=== PATIENT | female | born 1960 | race African-American/Black ===

== ENCOUNTER 2017-06-29 06:18 | Day surgery (SDC) | payer BC ==
[2017-06-27 11:03] VITALS: BMI 34.9
[2017-06-29] MEDS ORDERED: PROPOFOL 20 ML ONE (07:15)
[2017-06-29] MEDS ORDERED: MIDAZOLAM HCL 2 MG/2 ML SINGLE DOSE VIAL ONE (07:15)
[2017-06-29] MEDS ORDERED: ROCURONIUM BROMIDE 50 MG/5 ML VIAL ONE (07:15)
[2017-06-29] MEDS ORDERED: ePHEDrine SULFATE 50 MG/1 ML AMPULE ONE ×2 (07:15→07:16)
[2017-06-29] MEDS ORDERED: BUPIVACAINE HCL/PF 0.5% (5MG/ML) 10 ML VIAL ONE (07:17)
--- NOTE | 2017-06-29 08:10 | HP ---
Satellite [facility] - Chief Complaint Chief Complaint: lefft knee pain History Source: Patient - Past Medical History Allergies/Adverse Reactions: Allergies Allergy/AdvReac Type Severity Reaction Status Date / Time No Known Drug Allergies Allergy Verified 06/29/17 06:46 - Current Medications Current Medications: Home Medications Medication Instructions Recorded Ibuprofen [Advil -] 200 mg PO PRN PRN 06/29/17 Satellite Physical Exam - Physical Examination Vital Signs: Vital Signs Period Temp Pulse Resp BP Sys/Cruz Pulse Ox Last 24 Hr 97.9 F 82 20 139/86 97 Extremities: Other (+ joint line tenderness) Satellite Impression/Plan - Impression/Plan Impression: internal derangement left knee Operative Procedure: arthrosocpy left knee Date to be Performed: 06/29/17
[2017-06-29] MEDS ORDERED: ceFAZolin SODIUM 1 GM VIAL IVPB ONE (08:28)
[2017-06-29] MEDS ORDERED: KETOROLAC TROMETHAMINE 30 MG/1 ML VIAL ONE (08:49)
[2017-06-29] MEDS ORDERED: ceFAZolin SODIUM 1 GM VIAL ONE (08:50)
[2017-06-29] MEDS ORDERED: BUPIVACAINE HCL/PF 0.5% (5MG/ML) 10 ML VIAL IJ ONE (09:04)
--- NOTE | 2017-06-29 09:23 | OP ---
Operative Note - Note: Operative Date: 06/29/17 Pre-Operative Diagnosis: left knee pain, medial meniscus tear, OA Findings: synovitis, OA, meniscus tear Surgeon: Vernon Vernon Museum Registrar: Guilherme Nolen Anesthesiologist/QUALITY ASSURANCE CLERK: Romero Langley Specimens Removed: shavings Estimated Blood Loss (mls): 25 Drains, Volume Out (mls): 0 Blood Volume Replaced (mls): 0 Fluid Volume Replaced (mls): 0 Operative Report Dictated: Yes
[2017-06-29] MEDS ORDERED: oxyCODONE HCL 5 MG TABLET PO PRN ×2 (10:34)
[2017-06-29] MEDS ORDERED: ONDANSETRON 4 MG/2 ML VIAL IVPUSH PRN (10:34)
--- NOTE | 2017-06-29 10:43 | OP ---
DATE OF OPERATION: DATE OF DICTATION: 06/29/2017 PREOPERATIVE DIAGNOSES: Left knee pain, medial meniscus tear, osteoarthritis. POSTOPERATIVE DIAGNOSES: Left knee pain, medial meniscus tear, osteoarthritis, plus synovitis. PROCEDURE: Left knee arthroscopy, partial medial meniscectomy, debridement chondroplasty and arthroscopic synovectomy. SURGEON: Vernon Vernon MD FLANGER: Guilherme Nolen MD ANESTHESIOLOGIST: Romero Og MD STILL CLEANER: Rigoberto Doherty CRNA ANESTHESIA: LMA and an intraarticular injection of 20 mL of 0.5% Marcaine. DRAINS: None. COMPLICATIONS: None. SPECIMEN: Arthroscopic shavings. BLOOD LOSS: 25 mL. FLUID REPLACEMENT: Plasma-Lyte, 500 mL. This patient is a 56-year-old female with the preoperative diagnosis of left knee pain, medial meniscus tear, osteoarthritis. After understanding the potential risks, complications, alternatives and benefits of surgical versus nonsurgical treatment, the patient elected to undergo this procedure. The patient was brought to the operating room, peripheral IV placed and IV sedation given. Two grams of IV Ancef was given. The LMA anesthesia was induced. The patient was placed into the C-clamp leg reyna with ample padding throughout. The left lower extremity was prepped and draped in sterile fashion, elevated, exsanguinated with an Esmarch bandage, tourniquet inflated to 250 mmHg. A superolateral portal was established. A lateral portal was established under direct visualization. Medial portal was established. A diagnostic arthroscopy was performed. The patient's blood pressure was a little bit and there was some bleeding through the tourniquet. Therefore, first we tried to put the tourniquet up to 300 mmHg and then we took it down entirely. Total tourniquet time was 7 minutes. The rest of the case was done without the tourniquet. Patient was seen to have a degenerative-type tear of the medial meniscus. This was debrided with a curved shaver. Patient had some osteoarthritis in areas, grade 3 of the medial femoral condyle and the lateral femoral condyle. These were both debrided with the curved shaver. The lateral tibial plateau and medial tibial plateau had grade 2 changes. There was a lot of synovitis within the knee. This was debrided. After the partial synovectomy of the intracondylar notch, the ACL was seen to be intact, directly visualized and probed. It was good. Next our attention turned to the patellofemoral joint. The patient had some chondromalacia of the patella, "crabmeat" effect on the undersurface of the patella. This was debrided with the shaver. The patient had a lot of synovitis in the patellofemoral joint. As well this was debrided. After the partial synovectomy of the patellofemoral joint we could see the undersurface of the patella which definitely had widespread osteoarthritis and the femoral trochlea which actually looked good. The area was copiously irrigated and washed out. All instrumentation and excess saline were removed. The arthroscopy portals were closed with 3-0 nylon sutures. The area was then washed and dried, covered with Xeroform gauze, 4 x 4 gauze, ABD and Kevin bandage. Total operative time was about 25 minutes. There were no complications during the case. The patient tolerated the procedure quite well and was brought to the ambulatory recovery room in stable condition. Jaimee [id number]
[2017-06-29] MEDS ORDERED: LACTATED RINGERS SOLUTION 1,000 ML IV SCH (10:45)
[2017-06-29 11:06] VITALS: TEMP 97.9
[2017-06-29 12:22] VITALS: BP 138/79; PULSE 92
--- NOTE | 2017-07-01 15:34 | PATH ---
Surgical Pathology Report Patient Name: NICOLAS HERNANDEZ [facility]. Rec. #: [id number] /Age/Gender: 1960 (Age: 56) / F Account: [id number] Location: [facility] Taken: 06/29/2017 Received: 06/29/2017 Reported: 07/01/2017 Physicians: Vernon Vernon M.D. Specimen(s) Received LEFT KNEE SHAVINGS Clinical History It Left knee tear Final Diagnosis KNEE SHAVINGS, LEFT, ARTHROSCOPY: FRAGMENTS OF DENSE FIBROCONNECTIVE TISSUE, ADIPOSE TISSUE, AND REACTIVE SYNOVIUM. Electronically Signed Rochelle Liriano M.D. Gross Description Received in formalin, labeled "left knee shavings," is a 4.5 x 3.0 x 0.4 cm. aggregate of trujillo-yellow soft tissue fragments. A corporate representative portion is submitted in one cassette. /06/29/2017 saudi/06/29/2017
== END 2017-06-29 12:43 | disposition home or self-care (01) ==
LOC: JASU-SURG 06:18
PROVIDERS: ATTEND Orthopaedic Surgery
PROC: 0SBD4ZZ Excision of Left Knee Joint, Percutaneous Endoscopic Approach (ICD-10-PCS; principal; 2017-06-29 08:00)
DX: M23.204 Derangement of unspecified medial meniscus due to old tear or injury, left knee (principal); M17.12 Unilateral primary osteoarthritis, left knee; M65.9 Synovitis and tenosynovitis, unspecified
CPT/HCPCS: 88304-TC; 94760

== ENCOUNTER 2017-08-28 21:48 | Emergency (ER) | payer BC ==
[2017-08-28 22:00] VITALS: TEMP 98.2; BMI 34.2
--- NOTE | 2017-08-28 22:02 | PDOC ---
History of Present Illness - General Chief Complaint: Allergic Reaction Stated Complaint: ALLERGIC REACTION Time Seen by Provider: 08/28/17 21:52 - History of Present Illness Initial Comments: This 57-year-old woman with past history of SVT (treated with ablation therapy) and recent knee arthroscopy presents with a few day history of right-sided upper face pain/headache and one-day history of right forehead rash. Patient states that she developed severe sharp pain in her right ear and right side of her upper face and scalp 4 days ago. She was subsequently seen by ENT physician ; there was no specific abnormality seen and she was treated with a short course of prednisone 10 mg daily and naproxen as needed. Today, she developed painful raised red rash with areas of blisters on the right side of her forehead with some rash also present in her scalp in the area. No previous history of zoster. Patient confirms that she had chickenpox as a child. She has not received any zoster vaccine. . Patient denies vision changes. She has mild amount of irritation in the lateral aspect of the right eye No recent acute illnesses; patient recently had knee arthroscopy NO KNOWN DRUG ALLERGIES No history of smoking; no significant alcohol or recreational drug use Past History - Past Medical History Allergies/Adverse Reactions: Allergies Allergy/AdvReac Type Severity Reaction Status Date / Time No Known Drug Allergies Allergy Verified 08/28/17 21:51 Home Medications: Ambulatory Orders Indomethacin [Indocin -] 25 mg PO BID 08/28/17 Naproxen 500 mg PO DAILY 08/28/17 Oxycodone HCl/Acetaminophen [Percocet 5-325 mg Tablet] 1 tab PO Q6H PRN #20 tablet MDD 3 tabs 08/28/17 Prednisone 10 mg PO DAILY 08/28/17 Valacyclovir HCl [Valtrex] 1,000 mg PO TID #20 tablet 08/28/17 Anemia: No Asthma: No Cancer: No Cardiac Disorders: Yes (SVT) CVA: No COPD: No CHF: No Dementia: No Diabetes: No GI Disorders: No Disorders: No HTN: No Hypercholesterolemia: No Liver Disease: No Seizures: No Thyroid Disease: No - Surgical History Appendectomy: Yes Cardiac Surgery: Yes (ablation) Cholecystectomy: Yes Orthopedic Surgery: Yes (arthroscopy knee) - Suicide/Smoking/Psychosocial Hx Smoking History: Never smoked Have you smoked in the past 12 months: No Information on smoking cessation initiated: No Hx Alcohol Use: No Drug/Substance Use Hx: No Substance Use Type: Alcohol Hx Substance Use Treatment: No Review of Systems - Review of Systems Able to Perform ROS?: Yes Comments:: 12 point review of systems is negative except for what is noted in the history of present illness *Physical Exam - Vital Signs Last Vital Signs Temp Pulse Resp BP Pulse Ox 98.2 F 91 H 18 178/111 99 08/28/17 21:54 08/28/17 21:54 08/28/17 21:54 08/28/17 21:54 08/28/17 21:54 - Physical Exam Comments: GENERAL: Adult female, alert and oriented 3, in no acute distress HEAD: Faint erythematous rash of the right frontal scalp EYES: PERRLA, EOMI, sclera anicteric, conjunctiva clear. Scattered erythematous papular rash right forehead extending to right temporal area Scattered vesicular component seen in right temporal region; no other rash seen ENT: Ears normal, nares patent, oropharynx clear without exudates. Moist mucous membranes. NECK: Normal range of motion, supple without lymphadenopathy, JVD, or masses. LUNGS: Breath sounds equal, clear to auscultation bilaterally. No wheezes, and no crackles. HEART:Regular rate and rhythm, normal S1 and S2 without murmur, rub or gallop. ABDOMEN:.normal bowel sounds No guarding,tenderness or rebound.No masses No distention. EXTREMITIES: Normal range of motion, no edema. No clubbing or cyanosis. No erythema, or tenderness. NEUROLOGICAL: Cranial nerves II through XII grossly intact. Normal speech. No focal neurological deficits. MUSCULOSKELETAL: Back non-tender to palpation, no CVA tenderness SKIN: Warm, Dry, normal turgor, rash noted above Medical Decision Making - Medical Decision Making This 57-year-old woman with no significant active medical issues presents with right-sided headache/upper face pain for several days and one day history of painful rash on the right forehead/temporal area. Exam as noted: Rash consistent with zoster(ophthalmic branch,trigeminal) Patient will be treated with Valtrex 1000 mg 3 times a day for one week. First dose will be given here in the emergency room. Because patient has had severe headache/upper face pain, which has not responded to naproxen, Percocet 5/325 one tablet will be given here now for pain. Prescriptions for Valtrex and 4 Percocet 5/325 [(#20) to be used up to 3 times a day as needed for headache or severe pain] will be transmitted to her pharmacy. Patient will be given referral information for Doctor Ras ( patient does not have a doctor currently); also, she will be given referral information for for ophthalmologic follow-up (zoster outbreak is in ophthalmic branch of trigeminal nerve) *DC/Admit/Observation/Transfer Diagnosis at time of Disposition: Zoster Qualifiers: Herpes zoster complications: without complications Qualified Code(s): B02.9 - Zoster without complications - Discharge Dispostion Disposition: HOME Condition at time of disposition: Stable - Prescriptions Prescriptions: Oxycodone HCl/Acetaminophen [Percocet 5-325 mg Tablet] 1 tab PO Q6H PRN #20 tablet MDD 3 tabs PRN Reason: Severe Pain Valacyclovir HCl [Valtrex] 1,000 mg PO TID #20 tablet - Referrals Referrals: Brent Mcginnis MD [Staff Physician] - Soy August MD [Staff Physician] - - Patient Instructions Printed Discharge Instructions: Shing[place] Additional Instructions: Valtrex 1000 mg 3 times a day for 1 week Naproxen/ibuprofen/acetaminophen for mild to moderate headache Percocet 5/325 up to 3 times a day as needed for severe pain Follow-up with general medicine () within the next 5-7 days Follow-up with operating engineer (Dr. August) within the next 2-3 days(sooner if you have any vision changes) Return to ER if you have severe pain/fever - Post Discharge Activity
[2017-08-28] MEDS ORDERED: valACYclovir HCL 1000 MG TABLET PO ONE (22:45)
[2017-08-28] MEDS ORDERED: valACYclovir HCL 500 MG TABLET (FP) ONE ×2 (22:48→22:52)
[2017-08-28 23:12] VITALS: BP 157/102; PULSE 86
== END 2017-08-28 23:22 | disposition home or self-care (01) ==
LOC: FER 21:48
DX: B02.9 Zoster without complications (principal); I47.1 Supraventricular tachycardia
CPT/HCPCS: 99281-25

== ENCOUNTER 2020-06-16 04:51 | Inpatient (IN) | payer BC ==
[2020-06-12 13:59] VITALS: BMI 36.8
[2020-06-16] MEDS ORDERED: PHENAZOPYRIDINE HCL 100 MG TABLET (FP) ONE (05:53)
[2020-06-16] MEDS ORDERED: ceFAZolin SODIUM 1 GM VIAL ONE (05:53)
[2020-06-16] MEDS ORDERED: CEFAZOLIN 2 GM/D5W 2 GM/50 ML ML IVPB ONE (06:30)
[2020-06-16] MEDS ORDERED: PHENAZOPYRIDINE HCL 100 MG TABLET (FP) PO ONE (06:30)
[2020-06-16 06:58] LABS: HEMOGLOBIN 12.2 GM/dL (10.7-15.3); MCH 26.4 pg (25.7-33.7); MEAN CELL VOLUME 80.2 fl (80-96); MEAN PLT VOLUME 8.9 fl (7.5-11.1); PLATELET COUNT 246 K/MM3 (134-434); RBC 4.62 M/mm3 (3.60-5.2); RDW 14.7 % (11.6-15.6); WHITE BLOOD COUNT 7.4 K/mm3 (4.0-10.0)
[2020-06-16 07:06] LABS: ALBUMIN 3.7 g/dl (3.4-5.0); BLOOD UREA NITROGEN 20.6 mg/dL (7-18); CALCIUM 9.3 mg/dL (8.5-10.1); INR 1.03 (0.83-1.09); PROTHROMBIN TIME (PATIENT) 12.5 SEC (9.7-13.0)
[2020-06-16 07:09] LABS: CREATININE 0.9 mg/dL (0.55-1.3)
[2020-06-16 07:11] LABS: BILIRUBIN,TOTAL 0.6 mg/dL (0.2-1); TOT PROT 8.1 g/dl (6.4-8.2)
[2020-06-16] MEDS ORDERED: MIDAZOLAM HCL 2 MG/2 ML SINGLE DOSE VIAL ONE ×2 (07:15)
[2020-06-16] MEDS ORDERED: BACITRACIN 3.5 GM OPTHALMIC OINT TUBE ONE (07:19)
[2020-06-16 07:58] LABS: EPI CELLS >36 /uL (0-25.1); HYALINE CASTS 7 /uL (0-3.1); URINE APPEARANCE CLEAR; URINE BACTERIA 6747 /uL (0-1359); URINE BILIRUBIN NEGATIVE (NEGATIVE); URINE COLOR YELLOW; URINE GLUCOSE (UA) NEGATIVE (NEGATIVE); URINE KETONE NEGATIVE (NEGATIVE); URINE LEUK ESTERASE 1+ (NEGATIVE); URINE NITRITE NEGATIVE (NEGATIVE); URINE PROTEIN NEGATIVE (NEGATIVE); URINE RBC 10 /uL (0-23.9); URINE UROBILINOGEN 0.2 mg/dL (0.2-1.0); URINE WBC 212 /uL (0-25.8)
[2020-06-16] MEDS ORDERED: ROCURONIUM BROMIDE 50 MG/5 ML SYRINGE ONE (08:00)
[2020-06-16] MEDS ORDERED: SUCCINYLCHOLINE CHLORIDE 200 MG/10 ML SYRINGE ONE (08:00)
[2020-06-16] MEDS ORDERED: fentaNYL CITRATE 250 MCG/5 ML VIAL ONE (08:00)
[2020-06-16] MEDS ORDERED: LIDOCAINE HCL/PF 2% SDV 5ML VIAL ONE (08:00)
[2020-06-16] MEDS ORDERED: PROPOFOL 20 ML ONE (08:00)
[2020-06-16] MEDS ORDERED: ceFAZolin 2 GRAM PREMIX BAG IVPB ONE (08:08)
[2020-06-16] MEDS ORDERED: NEOSTIGMINE METHYLSULFATE 0.5 MG/ML - 10 ML MDV ONE ×2 (10:11→10:33)
[2020-06-16] MEDS ORDERED: GLYCOPYRROLATE 0.2 MG/1 ML VIAL ONE ×3 (10:11→10:33)
[2020-06-16] MEDS ORDERED: KETOROLAC TROMETHAMINE 30 MG/1 ML VIAL ONE (10:12)
[2020-06-16] MEDS ORDERED: DEXAMETHASONE SOD PHOSPHATE 4 MG/1 ML VIAL ONE (10:12)
[2020-06-16] MEDS ORDERED: DOCUSATE SODIUM 100 MG CAPSULE (FP) PO PRN (10:27)
[2020-06-16] MEDS ORDERED: oxyCODONE HCL 5 MG TABLET PO PRN ×4 (10:27→10:51)
[2020-06-16] MEDS ORDERED: BISACODYL 5 MG TABLET.DR (FP) PO PRN (10:27)
[2020-06-16] MEDS ORDERED: IBUPROFEN 800 MG/8 ML IJ IVPB PRN (10:27)
[2020-06-16] MEDS ORDERED: SIMETHICONE 80 MG TAB.CHEW (FP) PO PRN (10:27)
[2020-06-16] MEDS ORDERED: ONDANSETRON 4 MG/2 ML VIAL IVPUSH PRN ×2 (10:27→10:50)
[2020-06-16] MEDS ORDERED: PROMETHAZINE HCL 25 MG/1 ML VIAL IVPUSH PRN (10:50)
[2020-06-16] MEDS: CEFAZOLIN 1 GM/D5W 1 GM/50 ML BAG IVPB SCH (18:00)
[2020-06-16 18:16] LABS: HEMATOCRIT 35.3 % (32.4-45.2); HEMOGLOBIN 11.4 GM/dL (10.7-15.3); MCH 26.1 pg (25.7-33.7); MCHC 32.3 g/dl (32.0-36.0); MEAN CELL VOLUME 80.6 fl (80-96); MEAN PLT VOLUME 9.2 fl (7.5-11.1); PLATELET COUNT 227 K/MM3 (134-434); RBC 4.38 M/mm3 (3.60-5.2); RDW 14.6 % (11.6-15.6); WHITE BLOOD COUNT 11.7 K/mm3 (4.0-10.0)
[2020-06-16 18:34] LABS: BLOOD UREA NITROGEN 14.3 mg/dL (7-18); CALCIUM 9.4 mg/dL (8.5-10.1)
[2020-06-16 18:37] LABS: CREATININE 0.9 mg/dL (0.55-1.3)
[2020-06-17] MEDS: CEFAZOLIN 1 GM/D5W 1 GM/50 ML BAG IVPB SCH ×2 (01:13→09:06)
[2020-06-17 06:37] LABS: HEMATOCRIT 31.8 % (32.4-45.2); HEMOGLOBIN 10.6 GM/dL (10.7-15.3); MCH 26.8 pg (25.7-33.7); MCHC 33.3 g/dl (32.0-36.0); MEAN CELL VOLUME 80.5 fl (80-96); MEAN PLT VOLUME 9.1 fl (7.5-11.1); PLATELET COUNT 202 K/MM3 (134-434); RBC 3.95 M/mm3 (3.60-5.2); RDW 14.6 % (11.6-15.6); WHITE BLOOD COUNT 10.6 K/mm3 (4.0-10.0)
[2020-06-17 06:42] LABS: CALCIUM 8.8 mg/dL (8.5-10.1)
[2020-06-17 06:43] LABS: BLOOD UREA NITROGEN 11.8 mg/dL (7-18)
[2020-06-17 06:46] LABS: CREATININE 0.9 mg/dL (0.55-1.3)
[2020-06-17] MEDS: ENOXAPARIN NA (PORCINE) 40 MG/0.4 ML DISP.SYRIN SQ SCH (09:05)
[2020-06-17] MEDS: ACETAMINOPHEN 325 MG TABLET (FP) PO PRN ×2 (09:05→14:54)
[2020-06-17] MEDS ORDERED: SODIUM CHLORIDE 0.9% 500 ML INFUS.BAG IV ONE (15:08)
[2020-06-18] MEDS: ENOXAPARIN NA (PORCINE) 40 MG/0.4 ML DISP.SYRIN SQ SCH (09:23)
[2020-06-18] MEDS: HYDROCHLOROTHIAZIDE 12.5 MG CAPSULE (FP) PO SCH (13:33)
[2020-06-18] MEDS: POTASSIUM CHLORIDE TABS 10 MEQ TABLET.ER (FP) PO SCH (13:34)
[2020-06-18] MEDS: ACETAMINOPHEN 325 MG TABLET (FP) PO PRN (14:33)
[2020-06-19] MEDS: HYDROCHLOROTHIAZIDE 12.5 MG CAPSULE (FP) PO SCH (09:25)
[2020-06-19] MEDS: ENOXAPARIN NA (PORCINE) 40 MG/0.4 ML DISP.SYRIN SQ SCH (09:25)
[2020-06-19] MEDS: POTASSIUM CHLORIDE TABS 10 MEQ TABLET.ER (FP) PO SCH (09:25)
[2020-06-19 10:01] VITALS: BP 152/85; PULSE 100; TEMP 98.3
== END 2020-06-19 12:40 | disposition home or self-care (01) | DRG 742 ==
LOC: JASUSAT 04:51 → J3W 13:01 → JASUSAT 13:02 → J3W 13:02
PROVIDERS: ADMIT Obstetrics & Gynecology; ATTEND Obstetrics & Gynecology
PROC: 8E0W4CZ Robotic Assisted Procedure of Trunk Region, Percutaneous Endoscopic Approach (ICD-10-PCS; 2020-06-16)
PROC: 0UT94ZZ Resection of Uterus, Percutaneous Endoscopic Approach (ICD-10-PCS; principal; 2020-06-16 07:30)
PROC: 0UT74ZZ Resection of Bilateral Fallopian Tubes, Percutaneous Endoscopic Approach (ICD-10-PCS; 2020-06-16 07:30)
DX: D25.1 Intramural leiomyoma of uterus (principal); J98.11 Atelectasis; D25.2 Subserosal leiomyoma of uterus; N83.8 Other noninflammatory disorders of ovary, fallopian tube and broad ligament; E66.9 Obesity, unspecified; Z68.36 Body mass index [BMI] 36.0-36.9, adult
CPT/HCPCS: 36415; 71275-TC; 80048; 80053; 81003; 84702; 85027; 85610; 86850; 86900; 86901; 88302-TC; 88307-TC; 93005; 93010; 94010; 94760; Q9967